=== PATIENT | female | born 1980 | race Caucasian/White ===

== ENCOUNTER 2019-05-19 16:16 | Inpatient (IN) | payer MEDICAID ==
[~2019-05-19] VITALS: Ht 165.1 cm; Wt 92.7 kg
[~2019-05-19 16:16] MED LIST: BACL10TA PO; IBUP800T24 PO
[2019-05-19] MEDS ORDERED: cloNIDine HCL 0.1 MG TAB ONE (16:24)
[2019-05-19] MEDS ORDERED: cloNIDine HCL 0.1 MG TAB PO ONE ×2 (16:30)
[2019-05-19 16:46] LABS: Basophils # (auto) 0.1 uL; Basophils % (auto) 0.7 % (0.0-2.0); Eosinophils # (auto) 0 uL; Eosinophils % (auto) 0.4 % (0.0-7.0); Hematocrit 45.8 % (36.0-46.0); Hemoglobin 15.7 g/dL (12.2-16.2); Lymphocytes # (auto) 1.1 uL; Lymphocytes % (auto) 9.1 % (10.0-50.0); Mean Corpuscular Hemoglobin 29.8 pg (28.0-32.0); Mean Corpuscular Hgb Conc. 34.3 g/dL (32.0-36.0); Monocytes # (auto) 0.4 uL; Neutrophils # (auto) 10.8 uL; Neutrophils % (auto) 86.8 % (37.0-80.0); Nucleated Red Blood Cells % 0.1 %; Platelet Count (auto) 326 10^3/uL (140-450); Red Blood Cells 5.26 10^6/uL (4.0-5.20); Red Cell Distribution Width 13.7 % (11.8-14.3); White Blood Cell 12.4 10^3/uL (4.4-10.8)
[2019-05-19 17:06] LABS: Albumin 3.9 g/dL (3.4-5.0); Anion Gap 11 (5-15); Calcium 8.7 mg/dL (8.5-10.1); Carbon Dioxide 26 mmol/L (21-32); Chloride 104 mmol/L (98-107); Glucose 115 mg/dL (74-106); Potassium 3.1 mmol/L (3.5-5.1); Sodium 141 mmol/L (136-145)
[2019-05-19 17:11] LABS: Alanine Aminotransferase 41 U/L (13-56); Aspartate Aminotransferase 23 U/L (15-37); BUN/Creatinine Ratio 13.8; Bilirubin, Total 0.8 mg/dL (0.2-1.0); Blood Urea Nitrogen 16 mg/dL (7-18); GFR African American 67 mL/min; GFR Non-African American 55 mL/min; Total Protein 7.3 g/dL (6.4-8.2)
[2019-05-19 17:13] LABS: Alkaline Phosphatase 81 U/L (45-117)
[2019-05-19] MEDS ORDERED: amLODIPine BESYLATE 5 MG TAB ONE (17:40)
[2019-05-19] MEDS ORDERED: amLODIPine BESYLATE 5 MG TAB PO ONE (17:45)
[2019-05-19] MEDS ORDERED: hydrALAZINE HCL 20 MG/ML VL IV ONE (18:15)
[2019-05-19] MEDS ORDERED: POTASSIUM CHL 20 Meq TABLET PO ONE (18:30)
[2019-05-19] MEDS ORDERED: ONDANSETRON HCL 4 MG/2 ML VIAL ONE (18:50)
[2019-05-19 18:52] LABS: Urine Bacteria NONE SEEN /hpf (None Seen); Urine Blood 1+ /uL (Negative); Urine Mucus FEW (None Seen); Urine Specific Gravity 1.023 (1.001-1.035); Urine WBC 2 /hpf (0 - 5)
[2019-05-19] MEDS ORDERED: SODIUM CHLORIDE 0.9% 500 ML IV ONE (19:00)
[2019-05-19] MEDS ORDERED: LEVOFLOXACIN 500MG 100 ML IV ONE (19:00)
[2019-05-19] MEDS ORDERED: NITROGLYCERIN 0.4 MG SL TAB SL PRN (19:00)
[2019-05-19] MEDS ORDERED: ONDANSETRON HCL 4 MG/2 ML VIAL IV ONE (19:00)
[2019-05-19] MEDS ORDERED: MORPHINE SULF INJ 2 MG/ML SYRINGE 1ML IV PRN ×2 (19:00)
[2019-05-19] MEDS: PROMETHAZINE HCL 25 MG/ML 1ML IV PRN (20:41)
[2019-05-19 21:26] VITALS: BP 148/108
--- NOTE | 2019-05-19 21:26 | NUR ---
Telemetry admit from ER LA[facility]D admitted to Telemetry unit after hand off tool received. Patient oriented to primary RN, unit, room, bed, and unit policies regarding patient care and visiting hours. Patient now on continuous telemetry monitoring, tele box #[id number] and telemetry reading on arrival to unit is Sinus Rhythm 86. Patient weighed by bedscale and encouraged to call if they need something. All questions and concerns addressed, patient verbalized understanding.
[2019-05-19] MEDS: SOD CHL 0.45% WITH 20MEQ KCL 1,000 ML IV SCH (22:43)
[2019-05-19] MEDS: METOPROLOL TARTRATE 25 MG TAB PO SCH (22:45)
[2019-05-20] VITALS (7 sets, daily range): BP systolic 145–159; BP diastolic 86–112
[2019-05-20] MEDS: LABETALOL HCL 5 MG/ML ML 20ML VIAL IV PRN ×4 (00:24→15:31)
[2019-05-20] MEDS: PROMETHAZINE HCL 25 MG/ML 1ML IV PRN (00:32)
--- NOTE | 2019-05-20 00:41 | NUR ---
Patient with one episode of moderate amount of white fluid vomitus. Provided pt with towels and emesis bag. Phenergan given as ordered. Will continue to monitor.
[2019-05-20] MEDS: SOD CHL 0.45% WITH 20MEQ KCL 1,000 ML IV SCH (05:00)
[2019-05-20 06:40] LABS: Basophils # (auto) 0.1 uL; Basophils % (auto) 0.6 % (0.0-2.0); Eosinophils # (auto) 0 uL; Lymphocytes % (auto) 6.6 % (10.0-50.0); Mean Corpuscular Hgb Conc. 33.2 g/dL (32.0-36.0); Mean Corpuscular Volume 90.1 fL (80.0-100.0); Monocytes # (auto) 0.6 uL; Neutrophils # (auto) 13.9 uL; Neutrophils % (auto) 88.8 % (37.0-80.0); Nucleated Red Blood Cells % 0.2 %; Platelet Count (auto) 257 10^3/uL (140-450); Red Blood Cells 4.99 10^6/uL (4.0-5.20); Red Cell Distribution Width 14.1 % (11.8-14.3); White Blood Cell 15.6 10^3/uL (4.4-10.8)
[2019-05-20] MEDS ORDERED: LOSA25TA38 PO (06:48)
[2019-05-20 06:55] LABS: BUN/Creatinine Ratio 13.5; Calcium 8.1 mg/dL (8.5-10.1)
[2019-05-20] MEDS: METOPROLOL TARTRATE 25 MG TAB PO SCH ×2 (09:23→21:22)
--- NOTE | 2019-05-20 09:30 | NUR ---
[place] hospitalist pt is complaining of headache and pt has only morphine for pain, K is 3.0. Dr. Coates called back, received orders read back, verified and carried out.
[2019-05-20] MEDS ORDERED: POTASSIUM EFFERVESENT TAB 25 MEQ PO ONE (09:45)
[2019-05-20] MEDS ORDERED: traMADol HCL 50 MG TAB PO ONE (09:45)
--- NOTE | 2019-05-20 10:41 | NUR ---
pt refused medication for pain, per pt tramadol does not work for her, pain level 3/10, will continue to monitor.
--- NOTE | 2019-05-20 16:18 | NUR ---
pt seen by Dr. Saavedra made aware of pt's blood pressure high even after labetalol was given, per Dr. Saavedra he will add blood pressure medication. Ordered to stop IV fluids, and change morphine to dilaudid , orders read back and verified.
[2019-05-20] MEDS ORDERED: LOSARTAN POTASSIUM 25 MG TAB PO ONE (16:30)
[2019-05-20] MEDS ORDERED: cloNIDine HCL 0.1 MG TAB PO PRN (16:30)
[2019-05-20] MEDS ORDERED: amLODIPine BESYLATE 5 MG TAB PO ONE (16:30)
[2019-05-20] MEDS: LEVOFLOXACIN 500MG 100 ML IV SCH (18:50)
[2019-05-20 20:08] LABS: BUN/Creatinine Ratio 12.5
[2019-05-20 20:43] LABS: Potassium 2.8 mmol/L (3.5-5.1)
[2019-05-20] MEDS ORDERED: POTASSIUM CHL 20 Meq TABLET PO ONE (21:15)
[2019-05-21 05:00] VITALS: BP 146/99
[2019-05-21 08:05] LABS: Basophils # (auto) 0.1 uL; Basophils % (auto) 1.1 % (0.0-2.0); Eosinophils # (auto) 0.3 uL; Eosinophils % (auto) 3.4 % (0.0-7.0); Hematocrit 42.2 % (36.0-46.0); Hemoglobin 14.5 g/dL (12.2-16.2); Lymphocytes # (auto) 1.9 uL; Lymphocytes % (auto) 24.6 % (10.0-50.0); Mean Corpuscular Hemoglobin 30.2 pg (28.0-32.0); Mean Corpuscular Hgb Conc. 34.4 g/dL (32.0-36.0); Mean Corpuscular Volume 87.9 fL (80.0-100.0); Monocytes # (auto) 0.6 uL; Monocytes % (auto) 7.3 % (0.0-12.0); Neutrophils % (auto) 63.6 % (37.0-80.0); Nucleated Red Blood Cells % 0.2 %; Platelet Count (auto) 256 10^3/uL (140-450); White Blood Cell 7.9 10^3/uL (4.4-10.8)
[2019-05-21 08:14] LABS: Magnesium 2.3 mg/dL (1.6-2.6)
[2019-05-21 08:15] LABS: Potassium 3.1 mmol/L (3.5-5.1)
[2019-05-21 08:16] LABS: CRP High Sensitivity 0.54 mg/dL (< 0.3)
[2019-05-21 08:24] LABS: Albumin 2.6 g/dL (3.4-5.0); BUN/Creatinine Ratio 12.1; Bilirubin, Total 0.8 mg/dL (0.2-1.0); Calcium 7.9 mg/dL (8.5-10.1); Total Protein 6.5 g/dL (6.4-8.2)
[2019-05-21 09:00] VITALS: BP 147/103
[2019-05-21] MEDS ORDERED: amLODIPine BESYLATE 5 MG TAB PO SCH (10:00)
[2019-05-21] MEDS: METOPROLOL TARTRATE 25 MG TAB PO SCH ×2 (10:02→22:04)
[2019-05-21] MEDS: LOSARTAN POTASSIUM 25 MG TAB PO SCH (10:03)
--- NOTE | 2019-05-21 12:38 | NUR ---
Dr. Saavedra at bedside. MD chairez put in new orders.
[2019-05-21] MEDS ORDERED: POTASSIUM EFFERVESENT TAB 25 MEQ PO ONE (12:45)
[2019-05-21] MEDS ORDERED: amLODIPine BESYLATE 5 MG TAB PO ONE (12:45)
[2019-05-21 13:00] VITALS: BP 139/95
--- NOTE | 2019-05-21 14:20 | NUR ---
Dr. Meeks at bedside for OB Gyne Consult.
[2019-05-21] MEDS: PROMETHAZINE HCL 25 MG/ML 1ML IV PRN ×2 (15:00→20:09)
--- NOTE | 2019-05-21 15:00 | NUR ---
Phenergan Inj given for nausea as ordered.
[2019-05-21 16:47] VITALS: BP 139/84
--- NOTE | 2019-05-21 16:55 | NUR ---
PICC Line CAS Estrada at bedside for Midline insertion.
--- NOTE | 2019-05-21 17:38 | NUR ---
Midline Placement: Patient educated on need for midline placement. All risks and benefits explained and all questions and concerns addresses prior to procedure. 4Fr 20cm midline inserted via right basilic vein using Ultrasound. Sterile technique utilized. Blood return obtained from lumen and flushed easily with NS using proper technique. Midline secured with saline lock; biodisc and occlusive dressing applied. Primary RN notified. Midline lot #[id number].
[2019-05-21] MEDS: Ensure Enlive Strawberry 8oz Bottle PO SCH (17:53)
[2019-05-21] MEDS: HYDROmorphone HCL 2 MG/ML VL IV PRN (18:22)
[2019-05-21] MEDS: LEVOFLOXACIN 500MG 100 ML IV SCH (18:22)
[2019-05-21 18:43] LABS: BUN/Creatinine Ratio 13.6; Calcium 8.6 mg/dL (8.5-10.1); Potassium 3.5 mmol/L (3.5-5.1)
[2019-05-21 22:00] VITALS: BP 130/92
[2019-05-22 05:00] VITALS: BP 139/91
[2019-05-22 06:30] LABS: Basophils # (auto) 0.1 uL; Basophils % (auto) 1.1 % (0.0-2.0); Eosinophils # (auto) 0.4 uL; Eosinophils % (auto) 2.9 % (0.0-7.0); Hemoglobin 14.6 g/dL (12.2-16.2); Lymphocytes # (auto) 2.5 uL; Lymphocytes % (auto) 20.8 % (10.0-50.0); Mean Corpuscular Hemoglobin 30.6 pg (28.0-32.0); Mean Corpuscular Hgb Conc. 34.9 g/dL (32.0-36.0); Mean Corpuscular Volume 87.7 fL (80.0-100.0); Monocytes # (auto) 0.9 uL; Monocytes % (auto) 7.4 % (0.0-12.0); Neutrophils # (auto) 8.2 uL; Neutrophils % (auto) 67.8 % (37.0-80.0); Nucleated Red Blood Cells % 0.1 %; Platelet Count (auto) 263 10^3/uL (140-450); Red Blood Cells 4.79 10^6/uL (4.0-5.20); Red Cell Distribution Width 13.8 % (11.8-14.3)
[2019-05-22 06:52] LABS: BUN/Creatinine Ratio 15.9; Calcium 8.3 mg/dL (8.5-10.1)
[2019-05-22 08:00] VITALS: BP 161/94
[2019-05-22] MEDS: Ensure Enlive Strawberry 8oz Bottle PO SCH ×3 (08:00→17:55)
[2019-05-22 09:00] VITALS: BP 161/94
[2019-05-22] MEDS: amLODIPine BESYLATE 5 MG TAB PO SCH (10:30)
[2019-05-22] MEDS: METOPROLOL TARTRATE 25 MG TAB PO SCH ×2 (10:31→22:10)
[2019-05-22] MEDS: LOSARTAN POTASSIUM 25 MG TAB PO SCH (10:31)
[2019-05-22] MEDS ORDERED: POTASSIUM EFFERVESENT TAB 25 MEQ PO ONE (12:30)
[2019-05-22] MEDS ORDERED: SPIRONOLACTONE 25 MG TAB PO ONE (12:30)
[2019-05-22 12:52] VITALS: BP 148/103
[2019-05-22] MEDS ORDERED: POTASSIUM CHL 20 Meq TABLET PO ONE (15:00)
[2019-05-22 17:00] VITALS: BP 149/110
[2019-05-22] MEDS: LEVOFLOXACIN 500MG 100 ML IV SCH (18:44)
[2019-05-22 22:00] VITALS: BP 144/93
[2019-05-23] MEDS: HYDROmorphone HCL 2 MG/ML VL IV PRN (04:35)
[2019-05-23 05:00] VITALS: BP 140/101
[2019-05-23 08:00] VITALS: BP_SYST 133; BP_SYST 141; BP_DIAS 102; BP_DIAS 91
[2019-05-23] MEDS: Ensure Enlive Strawberry 8oz Bottle PO SCH ×2 (08:00→12:00)
[2019-05-23] MEDS: amLODIPine BESYLATE 5 MG TAB PO SCH (09:14)
[2019-05-23] MEDS: METOPROLOL TARTRATE 25 MG TAB PO SCH (09:15)
[2019-05-23] MEDS: LOSARTAN POTASSIUM 25 MG TAB PO SCH (09:15)
[2019-05-23] MEDS ORDERED: SPIRONOLACTONE 25 MG TAB PO SCH (10:00)
--- NOTE | 2019-05-23 10:38 | NUR ---
Opening Shift Note Assumed care of patient, awake and alert. No S/S of distress/SOB or pain. Instructed on POC and to call for assist PRN, will continue to monitor for changes Q1hr and PRN. Bed locked in lowest position with two side rails up and call light in reach.
[2019-05-23] MEDS ORDERED: POTASSIUM CHL 20 Meq TABLET PO ONE (12:00)
[2019-05-23 12:20] VITALS: BP 133/91
--- NOTE | 2019-05-23 12:30 | NUR ---
MID LINE PATIENT DISCHARGED AND MID LINE REMOVED WITH CATHETER INTACT.
[2019-05-23 13:00] VITALS: BP 153/95
--- NOTE | 2019-05-23 13:45 | NUR ---
Discharge instructions given as ordered. Encourage to follow up with PMD as instructed. All questions and concerns addressed. Patient verbalized understanding. Medication reconciliation form completed and copy given to patient. No Home medications held in Pharmacy and none to be returned to patient, and no needed vaccines given. Mid line removed with catheter intact, pressure dressing applied. Telemetry unit returned to ICU. Patient walked to vehicle with all personal belongings, accompanied by staff and family member. No distress noted at time of departure.
--- NOTE | 2019-05-23 14:45 | NUR ---
Estimated needs based on AJBW 67 kg for weight maintenance/obesity 2783-5706 kcal (23-25 kcal/kg) 54-67 g protein (0.8-1.0 g/kg) Addendum: 05/23/19 at [address] Amended: Links added.
== END 2019-05-23 13:40 | disposition home or self-care (01) | DRG 199 ==
LOC: ER 16:18 → TELE 16:19 → TELE-WESTW 21:22
PROVIDERS: ADMIT Nurse Practitioner Acute Care; ATTEND Internal Medicine Pulmonary Disease
DX: I16.1 Hypertensive emergency (principal); N17.9 Acute kidney failure, unspecified; K76.0 Fatty (change of) liver, not elsewhere classified; N18.3 Chronic kidney disease, stage 3 (moderate); D72.829 Elevated white blood cell count, unspecified; E66.9 Obesity, unspecified; G89.29 Other chronic pain; M54.2 Cervicalgia; M54.9 Dorsalgia, unspecified; E87.6 Hypokalemia; N20.0 Calculus of kidney; G43.909 Migraine, unspecified, not intractable, without status migrainosus; R19.00 Intra-abdominal and pelvic swelling, mass and lump, unspecified site; I12.9 Hypertensive chronic kidney disease with stage 1 through stage 4 chronic kidney disease, or unspecified chronic kidney disease; Z68.34 Body mass index [BMI] 34.0-34.9, adult; Z88.5 Allergy status to narcotic agent; Z79.1 Long term (current) use of non-steroidal anti-inflammatories (NSAID); Z87.442 Personal history of urinary calculi; Z91.14 Patient's other noncompliance with medication regimen; Z91.19 Patient's noncompliance with other medical treatment and regimen; K52.9 Noninfective gastroenteritis and colitis, unspecified
CPT/HCPCS: 36415; 70450; 71045; 72195; 74176; 76775; 76856; 80048; 80053; 81001; 81025; 82088; 82378; 83735; 83835; 84100; 84244; 84443; 84484; 84702; 85025; 86141; 86300; 86301; 86304; 87086; 93005; 96365; 96375; G0378; J1956; J2405